=== PATIENT | female | born 1960 | race American Indian/Alaskan Native ===

== ENCOUNTER 2019-11-09 07:03 | Day surgery (SDC) | payer OTHER ==
[~2019-11-09] VITALS: Ht 157.5 cm; Wt 86.6 kg
[~2019-11-09 07:03] MED LIST: ASPIRIN EC81 MG PO; FLUTICASONE PRO16 GM NS; GARCINIA CAMBO1 EACH PO; HYDROCHLOROTHIA25 MG PO; LISINOPRIL20 MG PO; NITROGLYCERIN0.4 MG SL; PERCOCET 7.5-31 EACH PO; PRILOSEC20 MG PO; VITAMIN D1000 UNIT PO; VITAMIN D5000 UNIT PO; WELLBUTRIN XL300 MG PO
[2019-11-09] MEDS ORDERED: SERTRALINE HCL25 MG PO (07:34)
--- NOTE | 2019-11-09 08:10 | NUR ---
DENIES ANY NEEDS. IV PATENT.
--- NOTE | 2019-11-09 08:55 | NUR ---
11/09/19 0855 Travis,Anastasiya 0847 PT ARRRIVED TO PACU ON 3L VIA NC, PT WOKE AND IS REORIENTED TO PACU. PT FALLS EASILY BACK TO SLEEP AND SNORING NOTED. 0850 PT WOKE AND DENIES PAIN AND IS ENCOURAGED TO PASS GAS. PT BACK TO SLEEP AND SNORING NOTED.
--- NOTE | 2019-11-09 09:58 | OR ---
[facility] [address] [place] [place], [place] [address] Signed DATE OF OPERATION: 11/09/2019 SURGEON: Zenaida Lyman MD PREOPERATIVE DIAGNOSES: 1. Personal history of colonic polyps, age 52. 2. Diverticulosis. POSTOPERATIVE DIAGNOSES: 1. Minimal sigmoid diverticulosis. 2. 4 mm polyps at 30 cm, 22 cm, 8 cm and 4 cm. 3. Minimal internal hemorrhoids. PROCEDURE: Colonoscopy with hot biopsy. ESTIMATED BLOOD LOSS: None. INDICATIONS: Anastacia is a 59-year-old female, who had hyperplastic polyps removed at age 52 in 2012. She was noted to have some diverticular disease as well. She was asked to see me for followup colonoscopy. She has no family history of colon cancer or polyps. She has no lower GI complaints. She talked about an anal condyloma at age 24. In the office, I gave her a pamphlet on colonoscopy. We looked at that together along with the risks including, but not limited to gas, bloating, crampy abdominal pain, bleeding, perforation requiring surgery, and missed diagnosis. We also discussed the need for IV conscious sedation. She had expressed understanding and wished to proceed. PROCEDURE NOTE: Anastacia was taken into our endoscopy suite and placed in the left lateral decubitus position. She was given a total of 7 mg of Versed and 150 mcg of fentanyl. A digital rectal exam was performed and this was unremarkable. Specifically, I did not see or feel any condyloma. She had good sphincter tone. The adult colonoscope was introduced and advanced all around into the cecum under direct visualization of camera without difficulty. The scope was slowly withdrawn. We could easily see the appendiceal orifice and the ileocecal valve. Pictures were taken throughout for photodocumentation. The above-mentioned polyps were easily removed with the help of hot biopsy forceps. She did have diverticula in the sigmoid colon. They were moderate in size, few in number, and scattered about. Once in the rectum, the scope had been retroflexed and she Electronically Signed By: ZENAIDA LYMAN MD 11/09/19 0958 PATIENT NAME: ANASTACIA LOPEZ OPERATIVE REPORT DATE OF : 62 REPORT #: [id number] PHYSICIAN: ZENAIDA LYMAN MD PCP: ESSIE MENEZES MD REPORT IS CONFIDENTIAL AND NOT TO BE RELEASED WITHOUT AUTHORIZATION [facility] [address] [place] [place], [place] [address] Alfredo does have just small internal hemorrhoid columns. After this, the gas was suctioned out and colonoscope removed. Anastacia tolerated the procedure quite well. RECOMMENDATIONS: I will see Anastacia back in my office in 7 to 14 days to review her results. Zenaida Lyman MD ALB/MODL /[id number] cc: MD Essie Field MD Copies: ZENAIDA LYMAN MD, ROBERT D DMD ~ Electronically Signed By: ZENAIDA LYMAN MD 11/09/19 0958 PATIENT NAME: ANASTACIA LOPEZ OPERATIVE REPORT DATE OF : 62 REPORT #: [id number] PHYSICIAN: ZENAIDA LYMAN MD PCP: ESSIE MENEZES MD REPORT IS CONFIDENTIAL AND NOT TO BE RELEASED WITHOUT AUTHORIZATION
--- NOTE | 2019-11-09 10:38 | NUR ---
PT ALERT, ORIENTED AND SUPPORTED BY HER SISTER. PT IS PLEASANT, HAS FEW QUESTONS. STATED SHE CAN'T WAIT TO HAVE A CHEESE BURGER. REQUESTED PRAYER, WILL FOLLOW NEEDED
--- NOTE | 2019-11-10 17:25 | PATH ---
[facility] [address] [facility] [place] [address] Signed SPECIMEN(S): A COLON POLYP AT 30 CM SPECIMEN(S): B COLON POLYP AT 22 CM SPECIMEN(S): C COLON POLYP AT 8 CM SPECIMEN(S): D COLON POLYP AT 4 CM SPECIMEN SOURCE: A. COLON POLYP AT 30 CM B. COLON POLYP AT 22 CM C. COLON POLYP AT 8 CM D. COLON POLYP AT 4 CM CLINICAL HISTORY: Diverticulosis, history polyps. Polyp, divertic, hemorr. MICROSCOPIC DESCRIPTION: Histologic sections of all submitted blocks are examined by light microscopy. These findings, together with the gross examination, support the pathologic diagnosis. FINAL PATHOLOGIC DIAGNOSIS: A. Colon, polyp at 30 cm, polypectomy: - Hyperplastic polyp with cautery artifact. - Negative for dysplasia or malignancy. B. Colon polyp at 22 cm, polypectomy: - Colonic mucosa with abundant cautery artifact and hyperplastic changes, see comment. - Negative for dysplasia or malignancy. C. Colon, polyp at 8 cm, polypectomy: - Fragments of hyperplastic polyp. - Negative for dysplasia or malignancy. D. Colon, polyp at 4 cm, polypectomy: - Colonic mucosa with cautery artifact and focal hyperplastic changes, see comment. - Negative for dysplasia or malignancy. COMMENT: Sections of the polyps at 22 cm (B) and 4 cm (D) have abundant cautery artifact which precludes complete microscopic evaluation. However, the diagnosis of a hyperplastic polyp is favored in both. Clinical correlation is required. NAL:cml:C2NR PATIENT NAME: MICHAEL LOPEZ PATHOLOGY DATE OF : 62 REPORT #: [id number] PHYSICIAN: SURESH FREGOSO PCP: ESSIE MENEZES MD REPORT IS CONFIDENTIAL AND NOT TO BE RELEASED WITHOUT AUTHORIZATION [facility] [address] [place], [place] [address] Signed GROSS DESCRIPTION: Four specimens are received in four containers, labeled "MD." A. The specimen, labeled "MD, colon polyp at 30 cm," is received in formalin and consists of a single 0.2 cm alfredo-brown tissue fragment. Specimen is entirely submitted in cassette (A1). B. The specimen, labeled "MD, colon polyp at 22 cm," is received in formalin and consists of a single 0.1 cm alfredo tissue fragment. Specimen is entirely submitted in cassette (B1). C. The specimen, labeled "MD, colon polyp at 8 cm," is received in formalin and consists of two, 0.2 and 0.3 cm alfredo-red tissue fragments. Specimen is entirely submitted in cassette (C1). D. The specimen, labeled "MG, colon polyp at 4 cm," is received in formalin and consists of two, 0.2 and 0.3 cm alfredo tissue fragments. Specimen is entirely submitted in cassette (D1). AM (under the direct supervision of a pathologist) The Gross Description was prepared using a voice recognition system. The report was reviewed for accuracy; however, sound-alike word errors, addition and/or deletions may occur. If there is any question about this report, please contact Client Services. PERFORMING LABORATORY: The technical component was performed by [facility], [address] [place] [id number] (Process Control Supervisor: Adrienne Carranza MD; CLIA# [id number]). [facility] [address] [address] (Process Control Supervisor: Dakota Jack MD; CLIA# [id number]). Diagnostician: Priscila Santos MD Pathologist Electronically Signed 11/10/2019 Copies: ~ PATIENT NAME: MICHAEL LOPEZ PATHOLOGY DATE OF : 62 REPORT #: [id number] PHYSICIAN: SURESH PATHOLOGY PCP: ESSIE MENEZES MD REPORT IS CONFIDENTIAL AND NOT TO BE RELEASED WITHOUT AUTHORIZATION
== END 2019-11-09 09:22 | disposition home or self-care (01) ==
LOC: DS 07:03 → OPS 07:03 → DS 08:15 → OPS 08:15
PROVIDERS: Colon & Rectal Surgery
PROC: 0DBE8ZZ Excision of Large Intestine, Via Natural or Artificial Opening Endoscopic (ICD-10-PCS; principal; 2019-11-09 08:15)
DX: Z12.11 Encounter for screening for malignant neoplasm of colon (principal); K63.5 Polyp of colon; K57.30 Diverticulosis of large intestine without perforation or abscess without bleeding; K64.8 Other hemorrhoids; Z86.010 Personal history of colon polyps; Z79.51 Long term (current) use of inhaled steroids; Z79.899 Other long term (current) drug therapy; Z98.890 Other specified postprocedural states; Z88.5 Allergy status to narcotic agent
CPT/HCPCS: 99153; G0500; J2250; J3010; J7121

== ENCOUNTER 2024-01-03 06:15 | Day surgery (SDC) | payer BC, OTHER ==
[~2024-01-03] VITALS: Ht 157.5 cm; Wt 80.5 kg
[~2024-01-03 06:15] MED LIST changes: +MAGNESIUM100 MG PO; +MIDAZOLAM HCL 5 MG/5 ML VIAL IV PRN; +SERTRALINE HCL25 MG PO; +VITAMIN D3 COM1 EACH PO; +fentaNYL citrate 100 MCG/2 ML VIAL IV PRN
[2024-01-03 06:28] VITALS: BP 125/67
[2024-01-03] MEDS ORDERED: OMEPRAZOLE40 MG PO (06:30)
[2024-01-03] MEDS ORDERED: MIDAZOLAM HCL 5 MG/5 ML VIAL ONE (06:43)
[2024-01-03] MEDS ORDERED: fentaNYL citrate 100 MCG/2 ML VIAL ONE (06:43)
[2024-01-03] MEDS ORDERED: LIDOCAINE HCL 1% 5 ML SDV INJ ONE (07:00)
[2024-01-03] MEDS ORDERED: IBLOOD GLUCOSE TEST STRIP 1 EA TEST VI PRN (07:00)
[2024-01-03] MEDS ORDERED: LACTATED RINGER'S 1,000 ML IV SCH (07:00)
--- NOTE | 2024-01-03 07:18 | NUR ---
ROUNDS. PT EXPRESSED SITUATIONALLY APPROPRIATE RESPONSES; CONSENTED TO PRAYER. FACILITATED STORY-TELLING; PROVIDED ANXIETY CONTAINMENT; PROVIDED PRAYER. PT EXPRESSED APPRECIATION.
--- NOTE | 2024-01-03 08:24 | NUR ---
01/03/24 0824 Anand Wall PATIENT ARRIVED FROM ENDO ROOM AT 0820. PATIENT RESTING COMFORTABLY. PATIENT WAS ASLEEP ON ARRIVAL. WHILE HOOKING UP MONITORS SHE WOKE UP SHORTLY. SHE DENIED PAIN AND NAUSEA. REQUESTED TO CONTINUE NAPPING. PATIENT IS ON 2L NASAL CANNULA AT 97% ON ROOM AIR.
[2024-01-03 08:56] VITALS: BP 112/68
--- NOTE | 2024-01-04 16:35 | PATH ---
[facility] [address] [facility] [address] [facility] [place] [place] [address] Signed SPECIMEN(S): A SIGMOID POLYP SPECIMEN SOURCE: A. SIGMOID POLYP CLINICAL HISTORY: History of colon polyp FINAL PATHOLOGIC DIAGNOSIS: Sigmoid polyp: - Benign colonic mucosa with slight hyperplastic features (one fragment). JVR:clv MICROSCOPIC EXAMINATION: Histologic sections of all submitted blocks are examined by light microscopy. These findings, together with the gross examination, support the pathologic diagnosis. GROSS DESCRIPTION: The specimen, labeled and designated "Rebekah sigmoid polyp," is received in formalin and consists of one alfredo soft tissue fragment, 0.5 cm. Entirely submitted in (A1). VB (under the direct supervision of a pathologist) The Gross Description was prepared using a voice recognition system. The report was reviewed for accuracy; however, sound-alike word errors, addition and/or deletions may occur. If there is any question about this report, please contact Client Services. PERFORMING LABORATORY: Technical component was performed by [facility], [address] [place] [id number] (CLIA# [id number]). Professional interpretation was performed by [email or web address], [address] [place] [id number] (CLIA#: [id number]). Diagnostician: Yannick Obrien MD Pathologist Electronically Signed 01/04/2024 PATIENT NAME: MICHAEL LOPEZ PATHOLOGY DATE OF : 62 REPORT #: [id number] PHYSICIAN: SURESH PATHOLOGY PCP: CAROLINA MORRIS REPORT IS CONFIDENTIAL AND NOT TO BE RELEASED WITHOUT AUTHORIZATION
--- NOTE | 2024-01-07 07:47 | OR ---
[facility] [address] [place], [place] [address] Signed DATE OF OPERATION: 01/03/2024 SURGEON: Bev Lopez MD PREOPERATIVE DIAGNOSIS: History of polyps four years ago. POSTOPERATIVE DIAGNOSIS: Sigmoid diverticulosis and one small polyp. PROCEDURE: Total colonoscopy to cecum with cold morcellation polypectomy x1. ANESTHESIA: Intravenous sedation; fentanyl 100 mcg and Versed 7 mg. INDICATION: This 63-year-old woman has a history of polyps having undergone colonoscopy four years ago by Dr. Filippo Mcgovern. She is referred by DEBRA Mishra of the [facility] for surveillance colonoscopy. She understands the risk of bleeding, infection, and perforation related to colonoscopy and wished to proceed. FINDINGS: The prep was good. Complete colonoscopy was undertaken to the cecum. She had numerous diverticula of the sigmoid. There was one small polyp of the sigmoid, which was excised as well. There were no other findings of concern. DESCRIPTION OF PROCEDURE: The patient was brought to the endoscopy suite and placed in lateral decubitus position, given intravenous sedation to the point of slurred speech and nystagmus. Digital rectal examination was normal. An Olympus video colonoscope was passed in the rectum and manipulated throughout the colon ultimately intubating the cecum itself. The ileocecal valve and appendiceal orifice were normal. Scope was withdrawn from that point and examination throughout showed no sign of abnormality until the left colon and sigmoid where diverticula were noted. In the mid sigmoid colon, there was a small polyp, this was excised with cold morcellation technique. Further withdrawal showed no other abnormality. Retroflexed view of the rectum was normal. Scope was removed and the patient was taken to the recovery room in good condition. Electronically Signed By: BEV LOPEZ MD 01/07/24 0747 PATIENT NAME: MICHAEL LOPEZ OPERATIVE REPORT DATE OF : 62 REPORT #: [id number] PHYSICIAN: BEV LOPEZ MD PCP: BRITT MORRIS REPORT IS CONFIDENTIAL AND NOT TO BE RELEASED WITHOUT AUTHORIZATION [facility] [address] [place], [place] [address] Signed CONCLUDING DIAGNOSIS: Polyps x1 and diverticulosis. PLAN: Recommend repeat colonoscopy in 5 to 7 years, sooner if clinically indicated. She will return to the ongoing care of DEBRA Mishra. Bev Lopez MD JM/MODL /[id number] cc: Britt Morris Copies: BRITT MORRIS ~ Electronically Signed By: BEV LOPEZ MD 01/07/24 0747 PATIENT NAME: MICHAEL LOPEZ OPERATIVE REPORT DATE OF : 62 REPORT #: [id number] PHYSICIAN: BEV LOPEZ MD PCP: BRITT MORRIS REPORT IS CONFIDENTIAL AND NOT TO BE RELEASED WITHOUT AUTHORIZATION
== END 2024-01-03 09:05 | disposition home or self-care (01) ==
LOC: DS 06:15 → OPS 06:15 → DS 01-04 13:00
PROVIDERS: ATTEND Surgery
PROC: 0DBN8ZZ Excision of Sigmoid Colon, Via Natural or Artificial Opening Endoscopic (ICD-10-PCS; principal; 2024-01-03 07:30)
DX: Z12.11 Encounter for screening for malignant neoplasm of colon (principal); K63.5 Polyp of colon; I10 Essential (primary) hypertension; G47.33 Obstructive sleep apnea (adult) (pediatric); K21.9 Gastro-esophageal reflux disease without esophagitis; F17.210 Nicotine dependence, cigarettes, uncomplicated
CPT/HCPCS: 99153; G0500; J2250; J3010; J7121